=== PATIENT | male | born 1995 | race Caucasian/White ===

== ENCOUNTER 2022-03-20 22:55 | Emergency (ER) | payer OTHER, SELFPAY ==
[2022-03-20 22:55] VITALS: BP 134/82; PULSE 83; RESP 16; TEMP 37; O2SAT 100; BMI 25.8
--- NOTE | 2022-03-20 23:04 | RAD_ITS ---
STUDY: X-RAY - RIGHT WRIST REASON FOR EXAM: Male, 26 years old. injury TECHNIQUE: 3 view(s) of the wrist were obtained. COMPARISON: None. FINDINGS: Acute dorsally angulated oblique fracture of the distal metaphysis of the radius consistent with a Colles'' fracture with a fracture line extending into the radiocarpal joint medially. Associated ulnar styloid avulsion fracture. Normal radiocarpal articulation. Normal distal radioulnar articulation. Normal carpal bones. Normal carpal articulations. Normal carpometacarpal articulation of the thumb. Normal second through fifth carpometacarpal articulations. Normal visualized metacarpal bones. The soft tissue structures are unremarkable. RAD/Wrist min 3 Views IMPRESSION: Acute comminuted Colles'' fracture with extension the radiocarpal joint with ulnar styloid avulsion fracture. Electronically Signed: Donte Moyer MD at 23:30 EST ,
--- NOTE | 2022-03-20 23:04 | EDS_ITS ---
HPI History of Present Illness Chief Complaint: Upper Extremity Injury Informant: patient Occured/Mechanism Mechanism/Context: Yes fall Comment: FOOSH Onset/Context/Timing Onset: Today (30 min [employer]) Context: Sudden Onset Timing: Continuous Quality of Pain: Aching Location: R wrist Current Severity: Mild Maximum Severity: Severe Worsened by: moving Relieved by: remaining still Associated Symptoms Associated Symptoms: Positive for Loss of Funtion; Negative for Parasthesia or Weakness Narrative Narrative: Patient presents after an injury to his right wrist. He was playing soccer about 30 minutes ago, someone took the ball f and took his feet out in the process, he landed with his right hand palm down behind him and injured his wrist. He states he is left-handed when it comes to writing, but he plays sports right-handed. [facility] Medical History (Updated 03/21/22 @ 01:[address] Roger Acuna MD) No acute medical problems Medical History no medical history no medical history Home Medications NK 03/20/22 [History Last Taken Unknown] Allergy/AdvReac Type Severity Reaction Status Date / Time spearmint Allergy Diarrhea Verified 03/20/22 23:12 Surgical History no surgical history no surgical history Social History Smoking Status: Never smoker ROS ROS ED Constitutional Constitutional ED: Denies chills or fever(s) Musculoskeletal Musculoskeletal: Reports extremity pain; Denies neck pain Integumentary Denies Abrasions, rash or wounds Neurologic Neurologic: Denies paresthesias or weakness EXAM Physical Exam Const Vital Signs: 03/20/22 22:55 Temperature 98.6 F Temperature Source Temporal Pulse Rate 83 Respiratory Rate 16 Blood Pressure 134/82 H Blood Pressure Mean 99 Pulse Ox 100 Oxygen Delivery Method Room Air Positive well nourished and well developed General Appearance ED: well developed and NAD Neck full ROM and supple Back/Spine normal ROM and normal to inspection Extremity Extremity Narrative: Limited range of motion right wrist with what appears to be a mild dinner fork deformity and swelling to the volar aspect. Mild tenderness at the distal radius but not at the carpus or distally within the hand. He is able to move fingers. Nontender at the elbow. No bleeding or skin injury. No other extremity tenderness or injury. Neuro oriented x3, no focal motor deficits and no sensory deficits noted Sensorium / Orientation: alert Psych mental status grossly normal and thought process normal Skin no wounds Rashes: no rashes MDM MDM MDM Narrative Medical decision making narrative: Three-view x-ray series of the right wrist shows a dorsally displaced fracture of the distal radius involving the ulnar styloid as well, consistent with a Colles' fracture. Radiology in agreement. Discussed with Dr. Burgess, he recommends closed reduction, splinting, close outpatient follow-up, which I am in agreement with given that on my estimate there is approximately 30 degrees or a little more of dorsal angulation. After reduction, radial height is restored, and the postreduction x-rays 2 views right wrist on my interpretation appear to show virtual anatomic alignment. It is certainly possible he may need surgery, as the fracture appears to approach the articular surface although the articular surface does appear to be intact and without a step-off. He will follow-up with orthopedics. Procedures Upper Extremity Splints Upper Extremity Splint: Orthoglass (AP short arm; NVID after placement) Splint Fabrication: Fabricated Location: Right Other Procedures Procedure(s): Hematoma block: Initially isopropanol prep dorsal between rays 2-3 about the distal radius fracture, instilling a small amount of subcutaneous plain 1% lidocaine with a 25-gauge needle, followed by repeat prep with isopropanol and Betadine, and instilling the rest of the 8 cc plain 1% lidocaine with a 21-gauge needle into the fracture site after aspirating a small amount of blood. Tolerated well no complications, adequate anesthesia obtained. Closed reduction right displaced closed distal radius fracture: After informed consent from the patient and after hematoma block above, I manually manipulated the distal radius, along with distracting the carpus/hand, applying volar pressure on the distal fracture fragment. Clinically felt neutral, confirmed by postreduction films. Neurovascularly intact after reduction and splinting, tolerated well without any complications. Discharge Plan Triage Chief Complaint: Upper Extremity Injury ED Provider: Roger Acuna Dx/Rx/DC Orders Clinical Impression: Closed traumatic displaced fracture of distal end of right radius Instructions: Splint Care, Wrist Fracture Prescriptions: No Action NK Primary Care Provider: Care Physician,No Primary Referrals: Agustín Osorio, [Med Staff - Active Staff] - As soon as possible NOT,DEFINED [Non-Staff] - Disposition Disposition: Home, Self Care
[2022-03-20 23:12] VITALS: RESP 16
[2022-03-21] MEDS: Lidocaine 1% (20 ml mdv) 20 ML Vial 10 ML INFILT (00:25)
--- NOTE | 2022-03-21 00:45 | RAD_ITS ---
EXAM: XR RIGHT WRIST, 2 VIEWS CLINICAL INDICATION: postreduction -- PORTABLE TECHNIQUE: Frontal and lateral views of the right wrist. This report was created using [employer] report generation technology. COMPARISON: 03/20/2022 FINDINGS: BONES/JOINTS: Reduction of the previously described distal radial and ulnar fractures, with improved alignment. Preservation of the joint space. No sclerotic or destructive changes observed. SOFT TISSUES: Soft tissue swelling. No radiopaque foreign body. RAD/Wrist 2 Views IMPRESSION: Reduction of the previously described distal radial and ulnar fractures, with improved alignment. Electronically Signed: Guille Knight MD at 1:03 EST ,
[2022-03-21 01:20] VITALS: BP 122/69; PULSE 77; RESP 15; O2SAT 99
== END 2022-03-21 01:21 | disposition home or self-care (01) ==
PROVIDERS: Emergency Provider Emergency Medicine; Visit Provider Emergency Medicine
DX: S52.501A Unspecified fracture of the lower end of right radius, initial encounter for closed fracture (principal); W01.0XXA Fall on same level from slipping, tripping and stumbling without subsequent striking against object, initial encounter; Y93.66 Activity, soccer
CPT/HCPCS: 73100; 73110; 99282

== ENCOUNTER → 2022-03-24 | Outpatient (CLI) | payer OTHER, SELFPAY ==
--- NOTE | 2022-03-24 07:36 | CT_ITS ---
EXAM: CT LEFT UPPER EXTREMITY WITHOUT INTRAVENOUS CONTRAST, WRIST CLINICAL INDICATION: WRIST FRACTURE TECHNIQUE: Helically acquired images were obtained of the left wrist without intravenous contrast. 2-D reformats were performed by the technologist. CTDIvol = ( 24.58 ) mGy, DLP = ( 425.39 ) mGycm This CT exam was performed using one or more of the following dose reduction techniques: automated exposure control, adjustment of the mA and/or kV according to patient size, and/or use of iterative reconstruction technique. This report was created using [employer] report [employer] technology. COMPARISON: Wrist radiography March 21, 2022 FINDINGS: BONES/JOINTS: Acute intra-articular comminuted fracture involving the distal radius. Acute nondisplaced fracture involving the ulnar styloid base. No other acute or healing fracture or malalignment. Preservation of the joint spaces. No sclerotic or destructive changes. SOFT TISSUES: Soft tissue swelling about the fracture sites. No suspicious significant hemorrhage or hematoma. Tendons are intact. No radiopaque foreign body. OTHER FINDINGS: Acute cholecystitis without nearby ventilation. CT/Extremity Upper without Contra IMPRESSION: Acute comminuted fracture of the distal radius and ulna. Adjacent soft tissue swelling but no hematoma. Electronically Signed: Warren Ureña MD at 4:28 EST ,
== END | disposition home or self-care (01) ==
LOC: CT 07:34
PROVIDERS: Visit Provider Physician Assistant
DX: S52.531A Colles' fracture of right radius, initial encounter for closed fracture (principal); S52.291A Other fracture of shaft of right ulna, initial encounter for closed fracture
CPT/HCPCS: 73200